=== PATIENT | female | born 1975 | race Caucasian/White ===

== ENCOUNTER → 2019-10-16 14:54 | Outpatient (CLI) | payer OTHER, SELFPAY ==
--- NOTE | ~2019-10-16 | MR_ITS ---
EXAMINATION: MR shoulder LT w con DATE: 10/16/2019 16:49 INDICATION: Subacromial impingement of the left shoulder presenting with 6 months of left shoulder pa in. TECHNIQUE: Magnetic resonance imaging (MRI) of the left shoulder was performed following intra-artic ular gadolinium contrast injection and without intravenous contrast. Details of the glenohumeral join t injection have been dictated separately. Sequences included axial T2-weighted FS FSE, axial T1-kana ghted FS FSE, coronal oblique T1-weighted FS FSE, coronal oblique T2-weighted FSE, sagittal T2-weight ed FS FSE, sagittal T1-weighted FSE, and ABER (abduction external rotation) T1-weighted FS FSE. COMPARISON: None. FINDINGS: Coracoacromial arch: The acromion undersurface is curved in morphology (type II). Small subacromial spur at the acromial i nsertion of the normal coracoacromial ligament. Mild acromioclavicular osteoarthritis. Rotator cuff: The supraspinatus, infraspinatus and teres minor are normal. The subscapularis is normal. Normal rota tor cuff muscle bulk and signal. Biceps tendon, glenoid labrum and glenohumeral cartilage: Long head of the biceps tendon is intact. There is partial thickness cartilage loss along the posteri or glenoid with shallow cleft consistent with delamination at the chondral labral interface at the 9- 10:00 position of the posterior glenoid. The posterior glenoid appears small with irregular margins o n the ABER images suggesting mild degeneration. Bones and other: Bone alignment is normal. No fracture or pathologic marrow replacing process. There is prominent alina ow edema subarticular cystic change along the lateral head of the clavicle. This could be related to osteoarthritis however appears out of proportion to the otherwise relatively mild osteoarthritis with out significant osteophytosis as well as disproportionate to the juxtaposed acromion and raises suspi cion for distal clavicular osteolysis. No abnormal fluid signal in the subacromial/subdeltoid bursa t o suggest bursitis. IMPRESSION: 1. Prominent marrow edema and subarticular cystic change at the lateral head of the clavicle dispropo rtionately otherwise mild osteoarthritis and raising suspicion for distal clavicular osteolysis. 2. 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 Reviewed, dictated and finalized at location A. IMPRESSION: 1. Prominent marrow edema and subarticular cystic change at the lateral head of the clavicle disproportionately otherwise mild osteoarthritis and raising susp icion for distal clavicular osteolysis. 2. Mild glenohumeral osteoarthritis with chondral labral delamination with shal low cleft at the chondral labral interface of the posterior glenoid and likely mild posterior labral degeneration.
--- NOTE | ~2019-10-16 | XR_ITS ---
XR fl inj shoulder LT - MR/CT DATE: 10/16/2019 15:48 INDICATION: Intra-articular contrast material injection of 4 left shoulder MRI examination. Subacromial impingement of left shoulder TECHNIQUE: The purpose of the procedure, technique and potential complications were discussed with th e patient. The patient verbalized understanding and gave consent. Timeout procedure was performed. The skin of the anterior aspect of the left shoulder was prepped with sterile solution. Sterile drape was applied. 1% lidocaine local anesthetic was administered to the skin and underlying subcutaneous tissues. A 22-gauge spinal needle was introduced into the glenohumeral joint space with fluoroscopic guidance. 12 cc mixed diluted lidocaine, Omnipaque 350 and multi-Shania solution was injected under fl uoroscopic visualization to confirm intra-articular location. The patient tolerated the procedure well, without any apparent complication. IMPRESSION: Fluoroscopically guided percutaneous intra-articular injection of dilute MultiHance contr ast solution for MRI shoulder examination Reviewed, dictated and finalized at [facility]. Reviewed, dictated and finalized at location D. IMPRESSION: Fluoroscopically guided percutaneous intra-articular injection of d ilute MultiHance contrast solution for MRI shoulder examination
== END ==
PROVIDERS: Visit Provider Internal Medicine
DX: S49.92XD Unspecified injury of left shoulder and upper arm, subsequent encounter (principal); M75.42 Impingement syndrome of left shoulder; M19.012 Primary osteoarthritis, left shoulder
CPT/HCPCS: 23350; 73222; 77002; A9577; Q9966

== ENCOUNTER 2023-04-19 09:38 | Outpatient (CLI) | payer OTHER, SELFPAY ==
--- NOTE | ~2023-04-19 | XR_ITS ---
Left Hand Technique: PA, oblique, and lateral views were obtained. Clinical History: Arthritis Findings: No acute fracture or dislocation is seen. Osseous alignment is anatomic. There is mild dege nerative change of the first CMC joint. Soft tissues are unremarkable. Impression: Mild degenerative change of the first CMC joint. Reviewed, dictated and finalized at location . Impression: Mild degenerative change of the first CMC joint.
== END 2023-04-19 09:39 | disposition home or self-care (01) ==
LOC: ANHIMG 09:43
PROVIDERS: PCP Physician Assistant; Visit Provider Plastic Surgery
DX: M18.12 Unilateral primary osteoarthritis of first carpometacarpal joint, left hand (principal); M19.042 Primary osteoarthritis, left hand
CPT/HCPCS: 73130